=== PATIENT | male | born 1955 | race Caucasian/White ===

== ENCOUNTER → 2016-12-15 | Outpatient (CLI) | payer BC, OTHER | LOC: HYPER 12-14 12:04 | DX: S80.211A Abrasion, right knee, initial encounter (principal); S80.212A Abrasion, left knee, initial encounter; I10 Essential (primary) hypertension; X58.XXXA Exposure to other specified factors, initial encounter ==

== ENCOUNTER → 2017-01-11 | Outpatient (CLI) | payer BC, OTHER | LOC: HYPER 01-05 06:51 | DX: S80.211D Abrasion, right knee, subsequent encounter (principal); S80.212D Abrasion, left knee, subsequent encounter; I10 Essential (primary) hypertension; X58.XXXD Exposure to other specified factors, subsequent encounter ==

== ENCOUNTER → 2018-04-06 | Outpatient (CLI) | payer BC, OTHER ==
[~2018-04-06] MED LIST: ADVAIR HFA 230M12 GM INH; ALLEGRA ALLERGY60 MG PO; AVODART0.5 MG PO; CELEBREX 200 M200 M1 PO; KEFLEX500 M2; LASIX 40 MG TAB40 M2 PO; MYSOLINE250 MG PO; POTASSIUM CHLO10 ME1 PO; PREDNISONE 5 MG5 MG PO; PRINIVIL20 MG PO; UROXATRAL10 MG PO; VITAMIN B-12500 MCG PO; VITAMIN C1000 MG; VITAMIN D5000 UNIT PO
== END ==
LOC: HYPER 07:11
DX: L03.115 Cellulitis of right lower limb (principal); L03.116 Cellulitis of left lower limb; S80.821A Blister (nonthermal), right lower leg, initial encounter; S80.822A Blister (nonthermal), left lower leg, initial encounter; E78.5 Hyperlipidemia, unspecified; I11.0 Hypertensive heart disease with heart failure; I50.30 Unspecified diastolic (congestive) heart failure; I25.10 Atherosclerotic heart disease of native coronary artery without angina pectoris; J45.909 Unspecified asthma, uncomplicated; L40.9 Psoriasis, unspecified; R56.9 Unspecified convulsions; M62.82 Rhabdomyolysis; M81.0 Age-related osteoporosis without current pathological fracture; Z87.891 Personal history of nicotine dependence; Z86.711 Personal history of pulmonary embolism; X58.XXXA Exposure to other specified factors, initial encounter; Y93.89 Activity, other specified; Y92.89 Other specified places as the place of occurrence of the external cause; Y99.8 Other external cause status

== ENCOUNTER → 2018-04-17 | Outpatient (CLI) | payer BC, OTHER ==
[~2018-04-17] MED LIST changes: +KEFLEX500 M1 PO
== END ==
LOC: HYPER 06:54
DX: L03.115 Cellulitis of right lower limb (principal); L03.116 Cellulitis of left lower limb; S80.821D Blister (nonthermal), right lower leg, subsequent encounter; S80.822D Blister (nonthermal), left lower leg, subsequent encounter; S80.01XD Contusion of right knee, subsequent encounter; I11.0 Hypertensive heart disease with heart failure; I50.30 Unspecified diastolic (congestive) heart failure; I25.10 Atherosclerotic heart disease of native coronary artery without angina pectoris; E78.5 Hyperlipidemia, unspecified; E66.9 Obesity, unspecified; J45.909 Unspecified asthma, uncomplicated; L40.9 Psoriasis, unspecified; M62.82 Rhabdomyolysis; M81.0 Age-related osteoporosis without current pathological fracture; Z87.891 Personal history of nicotine dependence; Z86.711 Personal history of pulmonary embolism; Z68.42 Body mass index [BMI] 45.0-49.9, adult; X58.XXXD Exposure to other specified factors, subsequent encounter

== ENCOUNTER → 2018-05-08 | Outpatient (CLI) | payer BC, OTHER | LOC: HYPER 06:52 | DX: S80.821D Blister (nonthermal), right lower leg, subsequent encounter (principal); S80.822D Blister (nonthermal), left lower leg, subsequent encounter; L40.9 Psoriasis, unspecified; E66.9 Obesity, unspecified; E78.5 Hyperlipidemia, unspecified; I11.0 Hypertensive heart disease with heart failure; I50.30 Unspecified diastolic (congestive) heart failure; I25.10 Atherosclerotic heart disease of native coronary artery without angina pectoris; J45.909 Unspecified asthma, uncomplicated; M81.0 Age-related osteoporosis without current pathological fracture; M62.82 Rhabdomyolysis; R60.0 Localized edema; R56.9 Unspecified convulsions; Z68.42 Body mass index [BMI] 45.0-49.9, adult; Z86.711 Personal history of pulmonary embolism; Z87.891 Personal history of nicotine dependence; X58.XXXD Exposure to other specified factors, subsequent encounter ==

== ENCOUNTER → 2018-05-29 | Outpatient (CLI) | payer BC, OTHER | LOC: HYPER 06:39 | DX: L03.115 Cellulitis of right lower limb (principal); L03.116 Cellulitis of left lower limb; R60.0 Localized edema; I11.0 Hypertensive heart disease with heart failure; I50.30 Unspecified diastolic (congestive) heart failure; E78.5 Hyperlipidemia, unspecified; L40.9 Psoriasis, unspecified; I25.10 Atherosclerotic heart disease of native coronary artery without angina pectoris; J45.909 Unspecified asthma, uncomplicated; R56.9 Unspecified convulsions; M62.82 Rhabdomyolysis; M81.0 Age-related osteoporosis without current pathological fracture; Z86.711 Personal history of pulmonary embolism; Z87.891 Personal history of nicotine dependence ==

== ENCOUNTER → 2018-07-17 | Outpatient (CLI) | payer BC, OTHER | LOC: HYPER 06:38 | DX: L03.115 Cellulitis of right lower limb (principal); L03.116 Cellulitis of left lower limb; L40.9 Psoriasis, unspecified; E78.5 Hyperlipidemia, unspecified; I11.0 Hypertensive heart disease with heart failure; I50.30 Unspecified diastolic (congestive) heart failure; I89.0 Lymphedema, not elsewhere classified; I25.10 Atherosclerotic heart disease of native coronary artery without angina pectoris; J45.909 Unspecified asthma, uncomplicated; R56.9 Unspecified convulsions; M81.0 Age-related osteoporosis without current pathological fracture; M62.82 Rhabdomyolysis; E66.01 Morbid (severe) obesity due to excess calories; Z86.711 Personal history of pulmonary embolism; Z87.891 Personal history of nicotine dependence; Z68.42 Body mass index [BMI] 45.0-49.9, adult ==